=== PATIENT | male | born 1965 | race Caucasian/White ===

== ENCOUNTER → 2017-07-25 | Outpatient (CLI) | payer BC, OTHER ==
--- NOTE | 2017-07-25 13:30 | DIAGNOSTIC IMAGING REPORT ---
LEFT SHOULDER MIN 2 VIEWS CLINICAL HISTORY: Left shoulder pain and decreased range of motion status post fall. COMPARISON: None FINDINGS: Alignment of the left shoulder is anatomic. There is no acute fracture or suspicious osseous lesion. There is mild osteoarthritis of the acromioclavicular and glenohumeral joints. A 4 mm oval-shaped density projecting over the greater tuberosity is of doubtful significance although this could reflect minimal calcific tendinitis. IMPRESSION: 1. No acute fracture or dislocation of the left shoulder. 2. 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 3. 4 mm oval-shaped calcific density projecting of the greater tuberosity. This is of doubtful significance although minimal calcific tendinitis would be difficult to exclude. Electronically signed by: Shawn Angel M.D. 07/25/2017 1:29 PM Dictated Date/Time: 07/25/2017 1:26 PM
== END | disposition home or self-care (01) ==
LOC: C.RDSM 13:02
PROVIDERS: ATTEND Family Medicine
DX: M25.512 Pain in left shoulder (principal); M25.862 Other specified joint disorders, left knee

== ENCOUNTER → 2017-11-11 | Outpatient (CLI) | payer BC | END | disposition home or self-care (01) | LOC: C.LAB1850 09:15 | PROVIDERS: ATTEND Family Medicine | DX: R53.83 Other fatigue (principal) ==